=== PATIENT | female | born 1970 | race Caucasian/White ===

== ENCOUNTER → 2018-09-05 | Outpatient (CLI) | payer MEDICARE, BC ==
--- NOTE | 2018-09-05 15:12 | CT ---
EXAMINATION TYPE: CT abdomen pelvis w con DATE OF EXAM: 09/05/2018 COMPARISON: NONE HISTORY: 48-year-old female with left sided pain with unexplained weight gain TECHNIQUE: Contiguous axial scanning of the abdomen and pelvis following administration of 100 ml Iso leidy 300 IV contrast. Delayed images through the kidneys and coronal/sagittal reconstructions perform ed. CT DLP: 3888.8 mGycm Automated exposure control for dose reduction was used. FINDINGS: Heart normal size without pericardial effusion. Lung bases clear without pleural effusion. Liver enlarged measuring 22.7 cm. Low attenuation is noted. No focal lesion identified. No biliary du ctal dilatation. Portal venous system is patent. Gallbladder, adrenal glands, kidneys, spleen, pancreas appear within normal limits. No dilated small bowel, free fluid, or free air. No mesenteric or retroperitoneal lymphadenopathy. Normal appendix. Oral contrast has progressed to the hepatic flexure. Mild overall stool burden. Mild diverticular hung nge within the sigmoid colon. No pericolonic inflammatory change. Bladder distended. Pelvic phleboliths. Uterus and ovaries are visualized. No abnormal fluid collectio n in the pelvis or pelvic lymphadenopathy. Bones: No osseous destructive process. IMPRESSION: 1. HEPATOMEGALY (22.7 CM) WITH HEPATIC STEATOSIS. CORRELATE WITH LFT's, LIPID PROFILE, AND PATIENT RI SK FACTORS. 2. MILD SIGMOID DIVERTICULOSIS. NO EVIDENCE FOR ACUTE DIVERTICULITIS. 3. NO OTHER ACUTE INFLAMMATORY PROCESS IDENTIFIED IN THE ABDOMEN OR PELVIS TO EXPLAIN THE PATIENT'S S YMPTOMS.
== END | disposition home or self-care (01) ==
LOC: RADCTMAIN 12:44
PROVIDERS: ATTEND Family Medicine
DX: K57.30 Diverticulosis of large intestine without perforation or abscess without bleeding (principal); K76.0 Fatty (change of) liver, not elsewhere classified; Z88.0 Allergy status to penicillin; Z88.8 Allergy status to other drugs, medicaments and biological substances
CPT/HCPCS: 74177; Q9967

== ENCOUNTER → 2018-11-14 | Outpatient (CLI) | payer MEDICARE, BC ==
[2018-11-14 10:36] VITALS: BP 136/73; PULSE 71; RESP 16; TEMP 97.5; BMI 49.4
--- NOTE | 2018-11-14 14:45 | P.HPOB ---
History of Present Illness H&P Date: 11/14/18 Chief Complaint: The patient is here for her routine gynecologic exam and ma mmogram. This is a 48-year-old 031 within LMP of 10/22/2018. The patient is here to establish with this office. The patient states that has been about 2 years since her last pelvic exam. She states she has a history of endometriosis and has been on Lupron for this in the past. Menstrual periods have been regular every month except she missed menstrual periods in June and July. She had another period 08/24/2018 and the day of the monthly since then. She states her menstrual periods are typically lasting 7 to 9 days with 4 days of heavier flow. On the heavy days she typically changes her protection about every 2 hours and does have clots. She states the menstrual periods are not as painful as they used to be an typically manages with Motrin. She states she has had problems with pelvic pain since a fall that occurred in 2007. At that time she had a tailbone injury. She states she has been having fairly constant pain with stabbing sharp pains in the mid-pelvis area. She rates the pain and an 8 out of 10. She states she is not been sexually active for more than [address] scan of the abdomen and pelvis was done on 09/05/2018 because she was having left sided pelvic pain at that time. This did not show any pelvic abnormality, but did show hepatomegaly and mild sigmoid diverticulosis. Review of Systems The patient states she has gained about 170 pounds sensor 2008 injury. She denies respiratory, cardiac, or G.I. problems. Past Medical History Past Medical History: Hypertension Additional Past Medical History / Comment(s): Fracture of the sacrum and coccyx in 2007. Hepatomegaly by CT scan. Diverticulosis. PAST RN CARDIAC CATH HISTORY: She has no history of STDs. She was told she had endometriosis(not not visually confirmed). History of Any Multi-Drug Resistant Organisms: None Reported Past Surgical History: No Surgical Hx Reported Additional Past Surgical History / Comment(s): 3 VTPs. Past Psychological History: No Psychological Hx Reported Smoking Status: Never smoker Past Alcohol Use History: None Reported Past Drug Use History: None Reported Additional History: She is single and is not seeing anybody at this time. She is considered disabled. - Past Family History Mother Family Medical History: Unable to Obtain Additional Family Medical History / Comment(s): The patient is adopted. Medications and Allergies Home Medications Medication Instructions Recorded Confirmed Type Aspirin 81 mg PO DAILY 11/14/18 11/14/18 History Hydrochlorothiazide [Hydrodiuril] 50 mg PO DAILY 11/14/18 11/14/18 History Ibuprofen [Motrin] 800 mg PO DAILY 11/14/18 11/14/18 History Terbinafine [LamISIL] 250 mg PO DAILY 11/14/18 11/14/18 History Allergies Allergy/AdvReac Type Severity Reaction Status Date / Time bee venom protein (honey bee) AdvReac Severe Dyspnea Unverified 11/14/18 10:19 naproxen AdvReac Intermediate Swelling Unverified 11/14/18 10:03 amoxicillin AdvReac Dyspnea Unverified 11/14/18 10:03 Exam Vital Signs Temp Pulse Resp BP Pulse Ox 11/14/18 10:23 97.5 F L 71 16 136/73 99 Intake and Output 11/13/18 11/14/18 11/14/18 22:59 06:59 14:59 Other: Weight 151.953 kg Height 5'9", weight 335 pounds, BMI 49.5. This is a well-developed well-nourished obese white female who is alert and oriented times 3 in no acute distress. HEENT: Within normal limits. NECK: Supple without mass or thyromegaly. CHEST AND LUNGS: Clear to auscultation. HEART: Regular rate and rhythm. BREASTS: Are without mass or discharge. AXILLARY EXAM: Negative for adenopathy. BACK: Negative for CVA tenderness. ABDOMEN: Soft, obese, nontender, without palpable masses. PELVIC EXAM: Normal external genitalia. Cervix and vagina appear normal. There is no unusual discharge. There is no evidence of prolapse. The uterus is midposition, nongravid size and nontender. There are no palpable adnexal masses or tenderness. Bimanual examination is somewhat limited secondary to her size. RECTAL EXAM: rectovaginal exam is negative for mass or tenderness and is negative for occult blood. EXTREMITIES: Nontender. IMPRESSION: 1. 48 year old female with chronic pelvic pain which seem to start around the time of a slip and fall accident in 2007. There are no significant physical findings at this time. 2. Menorrhagia 3. History of endometriosis per the patient. This was not visually confirmed. 4. Because of her health issues which include hypertension, hepatomegaly and obesity, I do not believe she is a good candidate for oral contraception as treatment for her menorrhagia. PLAN: 1. Pap smear was performed. 2. Self breast awareness was discussed with the patient. 3. Screening mammogram was done today. 4. Pelvic ultrasound was recommended and the order slip was given to the patient for this. 5. If the pelvic ultrasound is unremarkable, we will further discuss the possible option of endometrial ablation, possible laparoscopic examination. She understands that she would need a referral for this as I am no longer doing these types of procedures. 6. She will return in one year and PRN.
--- NOTE | 2018-11-15 10:48 | MM ---
Reason for exam: screening (asymptomatic). Last mammogram was performed 2 years and 11 months ago. Physical Findings: A clinical breast exam by your physician is recommended on an annual basis and results should be correlated with mammographic findings. MG 3D Screening Mammo W/Cad Bilateral CC and MLO view(s) were taken. Prior study comparison: December 22, 2015, bilateral MG 3d screening mammo w/cad. February 24, 2012, bilateral digital screening mammo w/CAD. There are scattered fibroglandular densities. Benign calcifications in the left breast. No suspicious abnormality. No significant changes when compared with prior studies. ASSESSMENT: Benign, BI-RAD 2 RECOMMENDATION: Routine screening mammogram of both breasts in 1 year.
--- NOTE | 2018-11-21 14:16 | P.PN ---
Progress Note - Text Progress Note Date: 11/21/18 OUTPATIENT FOLLOW-UP NOTE TEST(S)/RESULTS: test results from 11/14/2018 include negative Pap smear and benign mammogram. The Pap smear showed a shift in the vaginal ish suggestive of bacterial vaginosis. METHOD OF NOTIFICATION: the patient was notified by phone. PATIENT COMMENTS: the patient denies any symptoms of vaginal odor or vaginal discharge. She is planning to schedule her pelvic ultrasound. DIAGNOSIS: negative Pap smear and benign mammogram. DISCUSSION: the patient was instructed to call if she develops any BV type symptoms. PLAN: pelvic ultrasound will be scheduled. She will also return in one year and PRN.
== END | disposition home or self-care (01) ==
LOC: WWCWWP 09:29
PROVIDERS: ATTEND Obstetrics & Gynecology
DX: Z12.31 Encounter for screening mammogram for malignant neoplasm of breast (principal)
CPT/HCPCS: 77063; 77067

== ENCOUNTER → 2020-06-22 | Outpatient (CLI) | payer MEDICARE, BC ==
--- NOTE | 2020-06-23 13:29 | MM ---
Reason for exam: screening (asymptomatic). Last mammogram was performed 1 year and 7 months ago. Physical Findings: A clinical breast exam by your physician is recommended on an annual basis and results should be correlated with mammographic findings. MG 3D Screening Mammo W/Cad Bilateral CC and MLO view(s) were taken. Prior study comparison: November 14, 2018, bilateral MG 3d screening mammo w/cad. December 22, 2015, bilateral MG 3d screening mammo w/cad. There are scattered fibroglandular densities. There are benign appearing round calcifications bilaterally. There is no discrete abnormality. ASSESSMENT: Benign, BI-RAD 2 RECOMMENDATION: Routine screening mammogram of both breasts in 1 year.
== END | disposition home or self-care (01) ==
LOC: RADMAMWWP 08:52
PROVIDERS: ATTEND Family Medicine
DX: Z12.31 Encounter for screening mammogram for malignant neoplasm of breast (principal)
CPT/HCPCS: 77063; 77067

== ENCOUNTER → 2021-06-22 | Outpatient (CLI) | payer MEDICARE, BC ==
--- NOTE | 2021-06-25 09:40 | MM ---
Reason for exam: screening (asymptomatic). Last mammogram was performed 1 year ago. Physical Findings: A clinical breast exam by your physician is recommended on an annual basis and results should be correlated with mammographic findings. MG 3D Screening Mammo W/Cad Bilateral CC and MLO view(s) were taken. XCCL view(s) were taken of the left breast. Prior study comparison: June 22, 2020, bilateral MG 3d screening mammo w/cad. November 14, 2018, bilateral MG 3d screening mammo w/cad. There are scattered fibroglandular densities. Stable benign calcifications. No significant changes when compared with prior studies. ASSESSMENT: Benign, BI-RAD 2 RECOMMENDATION: Routine screening mammogram of both breasts in 1 year.
== END | disposition home or self-care (01) ==
LOC: RADMAMWWP 07:10
PROVIDERS: ATTEND Family Medicine
DX: Z12.31 Encounter for screening mammogram for malignant neoplasm of breast (principal)
CPT/HCPCS: 77063; 77067

== ENCOUNTER → 2022-02-14 | Outpatient (CLI) | payer MEDICARE, BC ==
--- NOTE | 2022-02-15 04:18 | MR ---
EXAMINATION TYPE: MR knee RT wo con DATE OF EXAM: 02/14/2022 COMPARISON: None HISTORY: Right knee pain/injury 1 week ago. Multiplanar multiecho imaging of the right knee with no contrast. There is large knee joint effusion. The anterior and posterior cruciate ligaments are intact. Patella is intact. There is small degenerative cyst formation in the superior patella. There is subcutaneous edema anterior to the patella tendon. The collateral ligaments are intact. There is subcutaneous edema around the knee. Medial meniscus appears fairly normal. Lateral meniscus appears intact. No evidence of a tear. The me dial and lateral joint spaces are fairly well-maintained. No fracture seen. IMPRESSION: Knee joint moderate sized effusion. Cutaneous edema around the knee. No evidence of ligament or menis raul tear. No fracture seen.
== END | disposition home or self-care (01) ==
LOC: RADMRIMAIN 17:19
PROVIDERS: ATTEND Family Medicine
DX: S89.91XA Unspecified injury of right lower leg, initial encounter (principal); M25.461 Effusion, right knee

== ENCOUNTER → 2023-09-08 | Outpatient (CLI) | payer MEDICARE, BC ==
--- NOTE | 2023-09-08 10:27 | FL ---
EXAMINATION TYPE: FL barium swallow DATE OF EXAM: 09/08/2023 CLINICAL INDICATION: 53-year-old female R1 3.10, unspecified dysphagia at the throat COMPARISON: None Total Fluoroscopy Time: 2 minutes 16 seconds Total DAP: 669.94 mGycm2. 48 images obtained. FINDINGS: The swallowing mechanism is normal. There is moderate degenerative disc disease lower cervical spine with anterior and plate spondylosis particularly at C5-C6 and C6-C7 mildly impressing onto the back w all of the cervical esophagus. This does not contribute any significant obstruction. Hypopharyngeal a natomy is otherwise preserved. The thoracic portion has a normal course and caliber. There are moderate tertiary peristaltic contrac tions and some blunted secondary stripping waves. When the patient is upright, there is slight delay and complete clearance of contrast from the esophagus. The mucosa is normal and no persistent filling defect is encountered. There is a small sliding hiatal hernia demonstrated. No gastroesophageal reflux is seen during the co urse of the exam. IMPRESSION: 1. Moderate degenerative disc disease mid to lower cervical spine. Anterior spurring here especially at C6-C7 impresses onto the back wall of the cervical esophagus without obstruction. 2. Mild to moderate esophageal dysmotility. 3. Small sliding hiatal hernia.
== END | disposition home or self-care (01) ==
LOC: RADUSWWP 08:57
PROVIDERS: ATTEND Family Medicine
DX: K22.4 Dyskinesia of esophagus (principal); K44.9 Diaphragmatic hernia without obstruction or gangrene; M50.323 Other cervical disc degeneration at C6-C7 level
CPT/HCPCS: 74220

== ENCOUNTER → 2023-12-12 | Outpatient (CLI) | payer MEDICARE, BC ==
[2023-12-12 16:17] LABS: ALT 19 U/L (8-44); AST 15 U/L (13-35); Albumin 4.3 g/dL (3.8-4.9); Albumin/Globulin Ratio 1.65 Ratio (1.60-3.17); Alkaline Phosphatase 56 U/L (41-126); BUN/Creat Ratio 20.22 Ratio (12.00-20.00); Blood Urea Nitrogen 18.2 mg/dL (9.0-27.0); Calcium 9.3 mg/dL (8.7-10.3); Carbon Dioxide 28.1 mmol/L (21.6-31.8); Chloride 105 mmol/L (96-109); Globulin 2.6 g/dL (1.6-3.3); Glucose 92 mg/dL (70-110); Potassium 4.2 mmol/L (3.5-5.5); Sodium 142 mmol/L (135-145); T4, Free (Free Thyroxine) 1.24 ng/dL (0.80-1.80); Total Bilirubin 0.4 mg/dL (0.3-1.2); Total Protein 6.9 g/dL (6.2-8.2)
[2023-12-12 16:44] LABS: Follicle Stimulating Hormone 39.4 mIU/mL; Luteinizing Hormone 42.6 mIU/mL
== END | disposition home or self-care (01) ==
LOC: LABWHC1 08:34
PROVIDERS: ATTEND Internal Medicine Endocrinology, Diabetes & Metabolism
DX: E23.6 Other disorders of pituitary gland (principal)
CPT/HCPCS: 36415; 80053; 82024; 82533; 83001; 83002; 84146; 84305; 84439; 84443